=== PATIENT | male | born 1980 ===

== ENCOUNTER 2020-10-28 19:40 | Emergency (ER) | payer SELFPAY ==
[~2020-10-28] VITALS: Ht 188 cm; Wt 104.3 kg
[2020-10-29 00:05] LABS: SARS-Cov-2 (COVID-19) PCR, MMC POSITIVE (NEGATIVE)
== END 2020-10-28 20:25 | disposition home or self-care (01) ==
LOC: ER 19:40
PROVIDERS: Physician Assistant
DX: U07.1 COVID-19 (principal)
CPT/HCPCS: 99283; U0004